=== PATIENT | male | born 1975 | race Caucasian/White ===

== ENCOUNTER 2017-06-17 09:49 | Emergency (ER) | payer OTHER ==
[~2017-06-17] VITALS: Ht 177.8 cm; Wt 93.2 kg
[2017-06-17 10:29] LABS: HEMATOCRIT 42.7 % (38.0-50.0); MCH 31.9 PG (29.0-34.0); MCHC 35.1 G/DL (30.0-36.0); MCV 90.9 FL (86-99); MEAN PLAT.VOLUME 9.7 uM^3 (9.0-12.4); PLATELET COUNT 279 K/uL (156-360); RBC DIS.WIDTH-CV 12.7 % (11.8-14.6); RBC DIS.WIDTH-SD 42.1 % (39-53)
[2017-06-17 11:19] LABS: CHLORIDE 106 mEq/L (99-109); POTASSIUM 4.1 mEq/L (3.7-5.4); SODIUM 139 mEq/L (136-147)
[2017-06-17 11:21] LABS: GLUCOSE 108 mg/dL (70-99)
[2017-06-17 11:22] LABS: ANION GAP 7 MEQ/L (2-14)
[2017-06-17 11:23] LABS: TOTAL BILIRUBIN 0.4 mg/dL (0.0-1.0)
[2017-06-17 11:24] LABS: ALKALINE PHOSPHATASE 42 IU/L (3-129)
[2017-06-17 11:25] LABS: GFR ESTIMATE (CALCULATED) > 59 mL/min/ (58.99-99999)
[2017-06-17 11:26] LABS: UREA NITROGEN (BUN) 15 mg/dL (9-23)
[2017-06-17] MEDS ORDERED: NORCO 7.5/321 TABLET PO (13:02)
[2017-06-17 14:17] VITALS: BP 112/86
== END 2017-06-17 14:18 | disposition home or self-care (01) ==
LOC: EME 09:49
PROVIDERS: Emergency Medicine
DX: S22.41XA Multiple fractures of ribs, right side, initial encounter for closed fracture (principal); S80.01XA Contusion of right knee, initial encounter; S50.01XA Contusion of right elbow, initial encounter; F17.200 Nicotine dependence, unspecified, uncomplicated; W17.89XA Other fall from one level to another, initial encounter
CPT/HCPCS: 70450; 71010; 71260; 72125; 73080; 73564; 74177; 80053; 85027; 93005; J2270; J7030